=== PATIENT | male | born 1955 | race Caucasian/White ===

== ENCOUNTER 2017-07-08 09:05 | Outpatient (CLI) | payer BC ==
--- NOTE | 2017-07-08 09:51 | RAD ---
CHEST PA AND LATERAL: History: 61-year-old male with history of dyspnea. Comparison: 02-17-10 FINDINGS: Heart size is normal. The lungs are clear. No pneumonia, edema, pleural effusion or other acute proce ss. IMPRESSION: NO acute intrathoracic disease. Stable from prior study. POS: OFF
== END 2017-07-08 09:06 | disposition home or self-care (01) ==
LOC: RAD 09:05
PROVIDERS: ATTEND Internal Medicine Critical Care Medicine
DX: R06.00 Dyspnea, unspecified (principal)
CPT/HCPCS: 71046

== ENCOUNTER 2022-01-29 10:05 | Outpatient (CLI) | payer MEDICARE, BC ==
[2022-01-26 10:45] VITALS: BMI 36.6
[2022-01-29] MEDS ORDERED: fentaNYL PF 100 MCG/2 ML SYRINGE ONE (12:38)
[2022-01-29] MEDS ORDERED: PROPOFOL 200 MG/20 ML VIAL ONE (12:45)
[2022-01-29] MEDS ORDERED: Ketorolac Tromethamine 30 MG/ML VIAL ONE (12:45)
[2022-01-29] MEDS ORDERED: Ondansetron PF 4 MG/2 ML Vial ONE (12:45)
== END 2022-01-29 15:28 | disposition home or self-care (01) ==
LOC: MRI 10:05
PROVIDERS: ATTEND Neurological Surgery
DX: M47.22 Other spondylosis with radiculopathy, cervical region (principal); M48.062 Spinal stenosis, lumbar region with neurogenic claudication; R42 Dizziness and giddiness; M25.551 Pain in right hip; M25.552 Pain in left hip; M47.815 Spondylosis without myelopathy or radiculopathy, thoracolumbar region; M47.816 Spondylosis without myelopathy or radiculopathy, lumbar region; M47.817 Spondylosis without myelopathy or radiculopathy, lumbosacral region
CPT/HCPCS: 70551; 72100; 72141; 72148; J1885; J2405; J2704

== ENCOUNTER 2023-03-20 09:49 | Observation (INO) | payer MEDICARE, BC ==
[~2023-03-20 09:49] MED LIST: Iopamidol-370 76% 500 ML MDV (1 ML CHARGE) ONE
[2023-03-20 10:11] LABS: #Basophils 0.1 thou/uL (0.0-0.2); #Eosinphils 0.2 thou/uL (0.0-0.7); #Monocytes 0.6 thou/uL (0.11-0.59); #Neutrophils 5.7 thou/uL (1.40-6.50); %Basophils 1.1 % (0.0-1.0); %Eosinophils 1.8 % (0.0-10.0); %Lymphocytes 34.9 % (21.0-51.0); %Monocytes 5.8 % (0.0-10.0); %Neutrophils 55.1 % (42.0-75.0); Hematocrit 46.5 % (42.0-52.0); Hemoglobin 15.9 g/dL (14.0-18.0); Mean Corpuscular HGB CONC 34.2 g/dL (32.0-36.0); Mean Corpuscular Hemoglobin 32.7 pg (27.0-31.0); Mean Corpuscular Volume 95.7 fl (78.0-98.0); Platelet Count 256 10x3/uL (130-400); Red Blood Cell (RBC) Count 4.86 mill/uL (4.70-6.10); White Blood Cell (WBC) Count 10.4 10x3/uL (4.8-10.8)
[2023-03-20 10:24] LABS: PTT 26.2 sec (22.9-36.1); Prothrombin Time 13.4 sec (12.0-14.7)
[2023-03-20 10:27] LABS: ALT (SGPT) 23 U/L (8-55); AST (SGOT) 29 U/L (5-34); Albumin 4.4 g/dL (3.4-4.8); Alkaline Phosphatase 77 U/L (40-110); Anion Gap 22 mmol/L (10-20); BUN (Urea Nitrogen) 9 mg/dL (8.4-25.7); Bilirubin, Total 0.6 mg/dL (0.2-1.2); Calc. Creatinine Clearance 0 mL/min (70-130); Calcium 9.4 mg/dL (7.8-10.44); Carbon Dioxide 17 mmol/L (23-31); Chloride 99 mmol/L (98-107); Estimated GFR 89; Globulin 3.6 g/dL (2.4-3.5); Glucose 181 mg/dL (80-115); Potassium 4.1 mmol/L (3.5-5.1); Sodium 134 mmol/L (136-145)
[2023-03-20 10:31] LABS: Troponin I Less than 0.010 ng/mL (< 0.028)
[2023-03-20] MEDS ORDERED: Aspirin Chewable 81 MG TAB ONE (11:39)
[2023-03-20] MEDS ORDERED: Ondansetron ODT 4 MG TAB PO PRN (12:09)
[2023-03-20] MEDS ORDERED: Lorazepam 2 MG/ML VIAL IM PRN (12:09)
[2023-03-20] MEDS ORDERED: Lorazepam 1 MG TAB PO PRN (12:09)
[2023-03-20] MEDS ORDERED: Electrolyte Replacement Protocol 1 EACH FS SCH (12:15)
[2023-03-20] MEDS ORDERED: Electrolyte Replacement Protocol FS PRN (12:30)
[2023-03-20] MEDS ORDERED: Multivit, Therapeutic 1 TAB PO SCH (12:30)
[2023-03-20] MEDS ORDERED: Folic Acid 1 MG TAB PO SCH (12:30)
[2023-03-20 12:35] LABS: Hemoglobin A1c 5.6 % (4.0-6.0)
[2023-03-20 12:37] LABS: Alcohol Less than 10.0 mg/dL (Less than 10); Cardiac Risk 2.3 (Less than 4.5); Cholesterol 169 mg/dl (< 200 Desired); HDL Cholesterol 75 mg/dL (>60 Neg Risk); LDL Cholesterol, Calculated 84 mg/dL; Magnesium 2.4 mg/dL (1.6-2.6); Phosphorus 2.8 mg/dL (2.3-4.7); Triglycerides 48 mg/dL (Less than 150)
[2023-03-20] MEDS ORDERED: Sodium Chloride 0.9% 1,000 ML IV SCH (13:30)
[2023-03-20 13:55] LABS: CK (CPK) 135 U/L (30-200); Salicylate Less than 8.0 mg/dL (15.0-30.0)
[2023-03-20] MEDS ORDERED: Lorazepam 1 MG TAB ONE (13:58)
[2023-03-20] MEDS ORDERED: Folic Acid 1 MG TAB ONE (13:58)
[2023-03-20] MEDS ORDERED: Multivit, Therapeutic 1 TAB ONE (13:59)
[2023-03-20] MEDS ORDERED: Thiamine 100 MG TAB ONE (13:59)
[2023-03-20] MEDS: Thiamine HCl 200 MG/2 ML VIAL SLOW IVP SCH (14:10)
[2023-03-20] MEDS: Lorazepam 1 MG TAB PO SCH ×3 (14:10→20:33)
[2023-03-20 15:09] LABS: Lactic Acid 2.2 mmol/L (0.5-2.2)
[2023-03-20] MEDS ORDERED: Thiamine 100 MG TAB PO SCH (17:45)
[2023-03-20 18:28] VITALS: BMI 36.8
[2023-03-20] MEDS: Famotidine 20 MG TAB PO SCH (20:33)
[2023-03-20] MEDS ORDERED: Atorvastatin Calcium 40 MG TAB PO SCH (21:00)
[2023-03-21] MEDS: Lorazepam 1 MG TAB PO SCH ×3 (02:15→14:25)
[2023-03-21 02:41] LABS: Bacteria/HPF None Seen HPF (None Seen); Bilirubin Negative (Negative); Blood, Urine 2+ (Negative); Clarity Extra Turbid (Clear); Glucose, Urine (Dipstick) Normal (Negative); Ketone, Urine Negative (Negative); Leukocyte 250 Leu/uL (Negative); Nitrite Negative (Negative); Protein, Urine (Dipstick) 100 mg/dL (Neg-Trace); RBC/HPF 0-3 HPF (0-3); Specific Gravity, Urine 1.022 (1.002-1.036); Squamous Epithelial None Seen HPF (0-3); Urobilinogen Normal mg/dL (Less than 2); WBC/HPF 0-3 HPF (0-3)
[2023-03-21 02:47] LABS: Amphetamine Not Detected (NotDetected); Barbiturates Screen Not Detected (NotDetected); Benzodiazepine Screen Detected (NotDetected); Cocaine Metabolite Screen Not Detected (NotDetected); Methadone Not Detected (NotDetected); Methamphetamine Not Detected (NotDetected); Opiate Screen Not Detected (NotDetected); Oxycodone Screen Not Detected (NotDetected); Phencyclidine (PCP) Not Detected (NotDetected); THC/Cannabinoid Screen Detected (NotDetected); Tricyclic Screen Not Detected (NotDetected)
[2023-03-21 07:05] LABS: #Basophils 0.1 thou/uL (0.0-0.2); #Eosinphils 0.1 thou/uL (0.0-0.7); #Monocytes 1.4 thou/uL (0.11-0.59); %Basophils 0.7 % (0.0-1.0); %Eosinophils 0.8 % (0.0-10.0); %Lymphocytes 29.4 % (21.0-51.0); %Monocytes 12.7 % (0.0-10.0); %Neutrophils 55.9 % (42.0-75.0); Hematocrit 42.2 % (42.0-52.0); Hemoglobin 14.3 g/dL (14.0-18.0); Mean Corpuscular HGB CONC 33.9 g/dL (32.0-36.0); Mean Corpuscular Hemoglobin 32.6 pg (27.0-31.0); Mean Corpuscular Volume 96.1 fl (78.0-98.0); Mean Platelet Volume 9.6 fL (7.4-10.4); Platelet Count 190 10x3/uL (130-400); RBC Distribution Width 13.2 % (11.5-14.5); Red Blood Cell (RBC) Count 4.39 mill/uL (4.70-6.10); White Blood Cell (WBC) Count 10.6 10x3/uL (4.8-10.8)
[2023-03-21] MEDS ORDERED: Lorazepam 2 MG/ML VIAL SLOW IVP SCH (07:30)
[2023-03-21] MEDS ORDERED: LORazepam 2 MG/ML SYR.(CARPUJECT) IVP SCH ×2 (07:30→09:30)
[2023-03-21 07:34] LABS: ALT (SGPT) 19 U/L (8-55); AST (SGOT) 26 U/L (5-34); Albumin 4.1 g/dL (3.4-4.8); Alkaline Phosphatase 71 U/L (40-110); Anion Gap 14 mmol/L (10-20); BUN (Urea Nitrogen) 9 mg/dL (8.4-25.7); Bilirubin, Total 1.2 mg/dL (0.2-1.2); Calc. Creatinine Clearance 144 mL/min (70-130); Calcium 9.4 mg/dL (7.8-10.44); Carbon Dioxide 22 mmol/L (23-31); Chloride 104 mmol/L (98-107); Estimated GFR 97; Glucose 85 mg/dL (80-115); Potassium 3.4 mmol/L (3.5-5.1); Protein, Total 7.1 g/dL (5.8-8.1); Sodium 137 mmol/L (136-145)
[2023-03-21] MEDS ORDERED: Potassium Chloride 20 MEQ TAB PO SCH (08:00)
[2023-03-21] MEDS: Famotidine 20 MG TAB PO SCH (08:30)
[2023-03-21] MEDS ORDERED: Multivit, Therapeutic 1 TAB PO SCH (09:00)
[2023-03-21] MEDS ORDERED: Cholecalciferol 1,000 UNITS (25 MCG) TAB PO SCH (09:00)
[2023-03-21] MEDS ORDERED: Hydrochlorothiazide 25 MG TAB PO SCH (09:00)
[2023-03-21] MEDS ORDERED: PARoxetine 20 MG TAB PO SCH (09:00)
[2023-03-21] MEDS ORDERED: Aspirin Chewable 81 MG TAB PO SCH (09:00)
[2023-03-21] MEDS ORDERED: Folic Acid 1 MG TAB PO SCH (09:00)
[2023-03-21] MEDS ORDERED: LORazepam 2 MG/ML SYR.(CARPUJECT) IVP PRN (09:13)
[2023-03-21] MEDS: Thiamine HCl 200 MG/2 ML VIAL SLOW IVP SCH (11:59)
[2023-03-21] MEDS ORDERED: Lorazepam 1 MG TAB PO PRN (12:09)
[2023-03-21] MEDS ORDERED: levETIRAcetam 500 MG TAB PO SCH ×2 (13:30→21:00)
[2023-03-21 13:31] VITALS: BP 135/70; TEMP 97.2
[2023-03-22] MEDS ORDERED: Lorazepam 1 MG TAB PO PRN (12:09)
[2023-03-22] MEDS ORDERED: Lorazepam 0.5 MG TAB PO SCH (12:15)
[2023-03-23] MEDS ORDERED: Thiamine 100 MG TAB PO SCH (09:00)
[2023-03-23] MEDS ORDERED: Lorazepam 0.5 MG TAB PO PRN (12:09)
== END 2023-03-21 16:22 | disposition home or self-care (01) ==
LOC: ERS 09:49 → ERHOLD 11:04 → 2SE 17:44
PROVIDERS: ADMIT Internal Medicine; ATTEND Internal Medicine
DX: R56.9 Unspecified convulsions (principal); I25.10 Atherosclerotic heart disease of native coronary artery without angina pectoris; I10 Essential (primary) hypertension; F10.10 Alcohol abuse, uncomplicated; E87.20 Acidosis, unspecified; F32.A Depression, unspecified; Z87.891 Personal history of nicotine dependence; Z79.899 Other long term (current) drug therapy; Z79.82 Long term (current) use of aspirin
CPT/HCPCS: 70450; 70496; 70498; 70551; 71045; 80053; 80061; 80306; 80307 ×2; 81001; 82550; 82962; 83036; 83605; 83735; 84100; 84484; 85025; 85610; 85730; 93005; 95711; 95819; 96374; 96375; 96376; 99285; G0378 ×3; J2060; 36415; 36416; 80179; 84443; J3411; J7050; Q9967

== ENCOUNTER 2024-12-21 10:09 | Day surgery (SDC) | payer MEDICARE, BC ==
[2024-12-18 09:18] VITALS: BMI 39.4
[2024-12-21] MEDS ORDERED: Ondansetron PF 4 MG/2 ML Vial ONE (12:00)
[2024-12-21] MEDS ORDERED: PROPOFOL 200 MG/20 ML VIAL ONE (12:00)
[2024-12-21] MEDS ORDERED: Lidocaine 1% PF 5 ML VIAL ONE (12:00)
== END 2024-12-21 14:05 | disposition home or self-care (01) ==
LOC: MRI 10:09
PROVIDERS: ATTEND Specialist
PROC: B03BYZZ Magnetic Resonance Imaging (MRI) of Spinal Cord using Other Contrast (ICD-10-PCS; principal; 2024-12-21)
DX: M54.12 Radiculopathy, cervical region (principal); I10 Essential (primary) hypertension
CPT/HCPCS: 70551; 72141; J2405; J2704